=== PATIENT | male | born 1970 | race Caucasian/White ===

== ENCOUNTER → 2020-05-12 | Outpatient (CLI) | payer MEDICARE, OTHER ==
[2020-05-13 10:13] LABS: RHEUMATOID ARTHRITIS FACTOR <10.0 IU/mL (0.0-13.9)
[2020-05-13 15:13] LABS: LYME IGG/IGM AB <0.91 ISR (0.00-0.90)
[2020-05-14 12:08] LABS: ANTI-DSDNA ANTIBODIES <1 IU/mL (0-9)
[2020-05-15 17:11] LABS: ALDOLASE 9.4 U/L (3.3-10.3)
== END ==
LOC: LAB 15:01
PROVIDERS: Psychiatry & Neurology Neurology
DX: M25.511 Pain in right shoulder (principal); M25.512 Pain in left shoulder; M19.90 Unspecified osteoarthritis, unspecified site; R25.1 Tremor, unspecified
CPT/HCPCS: 36415; 82085; 82550; 82607; 84443; 85652; 86038; 86140; 86225; 86431; 86618